=== PATIENT | female | born 1990 | race Caucasian/White ===

== ENCOUNTER 2022-11-08 18:15 | Emergency (ER) | payer BC, OTHER, SELFPAY ==
[2022-11-08 18:36] VITALS: BP 130/96; PULSE 77; RESP 18; TEMP 36.7; O2SAT 97; BMI 42.3
--- NOTE | 2022-11-08 18:39 | XR_ITS ---
The [address] [address] Patient Name: LIZET ERICKSON MRN: [id number] date: 1990 Sex: F Assigned Patient Location: ER Current Patient Location: ER Accession/Order Number: [id number] Exam Date: 11/08/2022 19:18 Report Date: 11/08/2022 19:53 At the request of: JENNIFER KEATING Procedure: XR hand RT min 3V EXAM: XR hand RT min 3V HISTORY: Patient was boxing, missed the bag and hit wall COMPARISON: None. TECHNIQUE: 3 views FINDINGS: IMPRESSION: Volar angulated fracture of the fifth metacarpal neck. Associated soft tissue edema. The remainder of the osseous structures are unremarkable Electronically authenticated by: EVELINE BEASLEY Date: 11/08/2022 19:53
--- NOTE | 2022-11-08 20:14 | ED.UPPEXIN1 ---
Documented by User: Kae Welsh 11/08/22 20:18 HPI - Extremity Injury (Upper) General Chief Complaint: Extremity Injury, Upper Stated Complaint: UPPER EXTREMITY INJURY Time Seen by Provider: 11/08/22 19:21 Source: patient Mode of arrival: walk-in Limitations: no limitations History of Present Illness HPI narrative: Patient presented here with a chief complaint of a right hand injury. Patient was punching a punching bag yesterday when her significant other excellently moved the bag and patient hit the wall. She has soft tissue swelling and pain to the 5th metacarpal area. She is right-hand dominant. Patient states injury occurred last evening. She took ibuprofen last evening nothing today. Related Data Allergies Allergy/AdvReac Type Severity Reaction Status Date / Time No Known Drug Allergies Allergy Verified 11/08/22 18:36 Review of Systems ROS Narrative All Systems are negative except as noted/marked.All systems reviewed and otherwise negative Exam Narrative Exam Narrative: Nurses note and vital signs reviewed and patient is not hypoxic. General: The patient appears well and in no apparent distress. Patient is resting comfortably on cart. Skin: Warm, dry, no pallor noted. There is no rash noted. Head: Normocephalic, atraumatic Eye: Normal conjunctiva, no drainage, EOMI. PERRL Ears, Nose, Mouth, and Throat: oral mucosa is moist. Nares patent. Mouth without vesicles. Ear canals patent. Tm's without Erythema Musculoskeletal:Soft tissue swelling tenderness 5th metacarpal area, neurovascular intact good capillary refill distally remainder of extremities are unremarkable Neurological: A&O x4, normal speech Psychiatric: Cooperative Constitutional Vital Signs, click to edit/add: Last Vital Signs Temp 98.1 F 11/08/22 18:36 Pulse 85 11/08/22 20:26 Resp 16 11/08/22 20:26 BP 124/102 H 11/08/22 20:26 Pulse Ox 98 11/08/22 20:26 O2 Del Method Room Air 11/08/22 20:26 Course Vital Signs Vital signs: Vital Signs Temperature 98.1 F 11/08/22 18:36 Pulse Rate 77 11/08/22 18:36 Respiratory Rate 18 11/08/22 18:36 Blood Pressure 130/96 H 11/08/22 18:36 Pulse Oximetry 97 11/08/22 18:36 Oxygen Delivery Method Room Air 11/08/22 18:36 Temperature 98.1 F 11/08/22 18:36 Pulse Rate 85 11/08/22 20:26 Respiratory Rate 16 11/08/22 20:26 Blood Pressure 124/102 H 11/08/22 20:26 Pulse Oximetry 98 11/08/22 20:26 Oxygen Delivery Method Room Air 11/08/22 20:26 MDM - Extremity Injury (Upper) MDM Narrative Medical decision making narrative: To present here with right hand injury. X-rays consistent with a metacarpal fracture, boxer fracture. Patient will follow-up with orthopedics. Ulnar gutter splint was placed by myself. Extremity neurovascular intact before and after application. Patient to rest ice and elevate. Patient was also given a sling. Discharged home prescription of [place]. Follow-up on Friday with Dr. Dale's office. Patient verbalizes understanding agrees with plan of care Medical Records Attestation: I reviewed the patient's medical records. Imaging Data hand: Radiologist's impression: Patient Name: LIZET ERICKSON MRN: [facility]:[id number] date: 1990 Sex: F Assigned Patient Location: ER Current Patient Location: ER Accession/Order Number: [id number] Exam Date: 11/08/2022 19:18 Report Date: 11/08/2022 19:53 At the request of: JENNIFER ESPAÑA Procedure: XR hand RT min 3V EXAM: XR hand RT min 3V HISTORY: Patient was boxing, missed the bag and hit wall COMPARISON: None. TECHNIQUE: 3 views FINDINGS: IMPRESSION: Volar angulated fracture of the fifth metacarpal neck. Associated soft tissue edema. The remainder of the osseous structures are unremarkable Electronically authenticated by: EVELINE BEASLEY Date: 11/08/2022 19:53 Discharge Plan Discharge Chief Complaint: Extremity Injury, Upper Clinical Impression: Boxer's fracture Patient Disposition: Home, Self-Care Time of Disposition Decision: 20:11 Condition: Good Instructions: Boxer Fracture (ED) Stand Alone Forms: Portal Instructions Referrals: Daphney Covington MD [Primary Care Provider] - 1 week Michel Dale MD [Physician] - 1 week Discharge Date/Time: 11/08/22 20:28 Documented by User: Jennifer España MD 11/08/22 21:11 HPI - Extremity Injury (Upper) General Chief Complaint: Extremity Injury, Upper Stated Complaint: UPPER EXTREMITY INJURY Time Seen by Provider: 11/08/22 19:21 Related Data Allergies Allergy/AdvReac Type Severity Reaction Status Date / Time No Known Drug Allergies Allergy Verified 11/08/22 18:36 Exam Constitutional Vital Signs, click to edit/add: Last Vital Signs Temp 98.1 F 11/08/22 18:36 Pulse 85 11/08/22 20:26 Resp 16 11/08/22 20:26 BP 124/102 H 11/08/22 20:26 Pulse Ox 98 11/08/22 20:26 O2 Del Method Room Air 11/08/22 20:26 Course Vital Signs Vital signs: Vital Signs Temperature 98.1 F 11/08/22 18:36 Pulse Rate 77 11/08/22 18:36 Respiratory Rate 18 11/08/22 18:36 Blood Pressure 130/96 H 11/08/22 18:36 Pulse Oximetry 97 11/08/22 18:36 Oxygen Delivery Method Room Air 11/08/22 18:36 Temperature 98.1 F 11/08/22 18:36 Pulse Rate 85 11/08/22 20:26 Respiratory Rate 16 11/08/22 20:26 Blood Pressure 124/102 H 11/08/22 20:26 Pulse Oximetry 98 11/08/22 20:26 Oxygen Delivery Method Room Air 11/08/22 20:26 MDM - Extremity Injury (Upper) MDM Narrative Medical decision making narrative: To present here with right hand injury. X-rays consistent with a metacarpal fracture, boxer fracture. Patient will follow-up with orthopedics. Ulnar gutter splint was placed by myself. Extremity neurovascular intact before and after application. Patient to rest ice and elevate. Patient was also given a sling. Discharged home prescription of [place]. Follow-up on Friday with Dr. Dale's office. Patient verbalizes understanding agrees with plan of care Attending physician attestation I have reviewed the mid-level documentation, agree with the documentation, medical decision making and treatment plan as outlined by the mid-level provider. Discharge Plan Discharge Chief Complaint: Extremity Injury, Upper Clinical Impression: Boxer's fracture Patient Disposition: Home, Self-Care Time of Disposition Decision: 20:11 Condition: Good Instructions: Boxer Fracture (ED) Stand Alone Forms: Portal Instructions Referrals: Daphney Covington MD [Primary Care Provider] - 1 week Michel Dale MD [Physician] - 1 week Discharge Date/Time: 11/08/22 20:28
[2022-11-08 20:26] VITALS: BP 124/102; PULSE 85; RESP 16; O2SAT 98
== END 2022-11-08 20:28 | disposition home or self-care (01) ==
PROVIDERS: Emergency Provider Emergency Medicine; PCP Family Medicine
DX: S62.336A Displaced fracture of neck of fifth metacarpal bone, right hand, initial encounter for closed fracture (principal); W22.01XA Walked into wall, initial encounter
CPT/HCPCS: 29125; 73130; 99283